=== PATIENT | female | born 2000 | race Caucasian/White ===

== ENCOUNTER 2025-05-09 06:24 | Emergency (ER) | payer OTHER ==
[~2025-05-09] VITALS: Ht 170.2 cm; Wt 66.2 kg
== END 2025-05-09 07:30 | disposition home or self-care (01) ==
LOC: ER 06:24
DX: S61.211A Laceration without foreign body of left index finger without damage to nail, initial encounter (principal); W26.0XXA Contact with knife, initial encounter
CPT/HCPCS: 90715